=== PATIENT | male | born 1940 | race Caucasian/White ===

== ENCOUNTER → 2018-05-18 | Outpatient (CLI) | payer MEDICARE ==
[~2018-05-18] MED LIST: BENICAR40 MG PO; FLOMAX0.4 MG PO; KLOR-CON 1010 MEQ; METOPROLOL TART25 MG PO; NEXIUM40 MG PO; PROAIR HFA INH8.5 GM; SIMVASTATIN40 MG PO; SODIUM CHLORID250 M1 PO; eliquis PO
--- NOTE | 2018-05-19 08:29 | Diagnostic Imaging Report ---
#[id number] - USBRELIMRT ULTRASOUND OF THE RIGHT BREAST : 05/18/2018 Comparison is made to exam dated: 05/18/2018 mammogram - [facility]. Color flow and real-time ultrasound were performed on the right breast in the retroareolar region. No cystic or solid mass is seen. IMPRESSION: NEGATIVE There is no sonographic evidence of malignancy. Juan Luis Robison Jr., D.O. cw/:05/18/2018 14:28:11 Leather Crafter: Steffany DE LEON(R)(M), [facility] letter sent: Normal Exam Ultrasound BI-RADS: 1 Negative
--- NOTE | 2018-05-19 08:29 | Diagnostic Imaging Report ---
#[id number] - USBRELIMLT ULTRASOUND OF THE LEFT BREAST : 05/18/2018 Comparison is made to exam dated: 05/18/2018 mammogram - [facility]. Color flow and real-time ultrasound were performed on the left breast in the retroareolar region. No cystic or solid mass is noted. IMPRESSION: NEGATIVE There is no sonographic evidence of malignancy. Juan Luis Robison Jr., D.O. cw/:05/18/2018 14:26:21 Business Services Director: Sarthak Parker RDMS, [facility] letter sent: Normal Exam Ultrasound BI-RADS: 1 Negative
--- NOTE | 2018-05-19 08:29 | Diagnostic Imaging Report ---
#[id number] - MGDXBIL #MALE BILATERAL FIRST EVER DIGITAL DIAGNOSTIC MAMMOGRAM WITH CAD: 05/18/2018 No prior exams were available for comparison. Current study contains 4 films. Current study was also evaluated with a Computer Aided Detection (CAD) system. There is a benign calcification in the right breast. There is asymmetric gynecomastia with increased right retroareolar tissue compared to the fatty tissue on the left. No mass is identified. An ultrasound exam of both retroareolar regions will follow this exam. No significant masses, calcifications, or other findings are seen in either breast. IMPRESSION: BENIGN There is no mammographic evidence of malignancy. A 1 year screening mammogram is recommended. The patient will be notified by letter of the results. Juan Luis Robison Jr., D.O. cw/:05/18/2018 12:47:48 Cataract Lens Generator: Steffany GASPAR)(Jalyn), [facility] letter sent: Normal Exam Mammogram BI-RADS: 2 Benign
== END ==
LOC: MAMMO 09:44
PROVIDERS: ATTEND Family Medicine
DX: N62 Hypertrophy of breast (principal)
CPT/HCPCS: 77066

== ENCOUNTER 2020-06-26 06:04 | Inpatient (IN) | payer MEDICARE ==
[~2020-06-26] VITALS: Ht 165.1 cm; Wt 90.7 kg
[2020-06-26] MEDS ORDERED: ACETAMINOPHEN 325 MG TAB ONE (06:37)
[2020-06-26] MEDS ORDERED: ACETAMINOPHEN 325 MG TAB PO ONE (06:45)
[2020-06-26 06:56] LABS: BASOPHILS # (AUTO) 0.1 (0.0-0.1); BASOPHILS % 0.7 % (0.0-1.0); EOSINOPHILS # (AUTO) 0.4 (0.0-0.4); HEMATOCRIT 26.8 % (38.2-49.6); HEMOGLOBIN 8.3 g/dL (14.0-18.0); LYMPHOCYTES # (AUTO) 2.2 (1.0-3.2); LYMPHOCYTES % 12.2 % (18.0-39.1); MEAN CORPUSCULAR HEMOGLOBIN 27.3 pg (28-32); MEAN CORPUSCULAR VOLUME 88.2 fL (81-99); MONOCYTES # (AUTO) 1.3 (0.2-0.8); MONOCYTES % 7.1 % (4.4-11.3); NEUTROPHILS # (AUTO) 14.1 (2.1-6.9); NEUTROPHILS % 77.4 % (38.7-80.0); PLATELET COUNT 289 x10e3/uL (140-360); RED BLOOD COUNT 3.04 x10e6/uL (4.3-5.7); RED CELL DISTRIBUTION WIDTH 15.8 % (11.7-14.4)
[2020-06-26] MEDS ORDERED: METHYLPREDNISOLONE SOD SUCC 125 MG/2ML VIAL IV STA (06:59)
[2020-06-26] MEDS ORDERED: CEFTRIAXONE SOD 1 GM/50 ML BAG IV SCH (07:00)
[2020-06-26 07:07] LABS: ALBUMIN 3.7 g/dL (3.5-5.0); ALBUMIN/GLOBULIN RATIO 0.8 (0.8-2.0); ANION GAP 15.4 mmol/L (8-16); CALCIUM 8.8 mg/dL (8.4-10.2); CREATININE, SERUM 1.68 mg/dL (0.72-1.25); POTASSIUM 3.4 mmol/L (3.5-5.1)
[2020-06-26 07:11] LABS: INR 1.4; PARTIAL THROMBOPLASTIN TIME 41.4 seconds (23.8-35.5); PROTHROMBIN TIME 18.1 seconds (11.9-14.5)
[2020-06-26 07:16] LABS: CREATINE KINASE MB 1.8 ng/mL (0-5.0)
[2020-06-26] MEDS: CEFTRIAXONE SOD 1 GM in SODIUM CHLORIDE 0.9% 50ML 50 ML IV SCH (07:30)
[2020-06-26] MEDS ORDERED: IOPAMIDOL 370 MG/ML 200 ML INFUS..BTL INJ ONE (07:34)
[2020-06-26] MEDS ORDERED: SODIUM CHLORIDE 0.9% 50ML 50 ML ONE (07:34)
[2020-06-26] MEDS ORDERED: SODIUM CHLORIDE 0.9% 250ML 250 ML IV ONE (07:45)
[2020-06-26] MEDS: AZITHROMYCIN 500MG/NS 250 ML 250 ML IV SCH (07:47)
[2020-06-26] MEDS ORDERED: METOCLOPRAMIDE HCL 10 MG/2ML VIAL IV ONE (09:00)
[2020-06-26] MEDS ORDERED: DIPHENHYDRAMINE HCL INJ 50 MG/ML VIAL IV ONE (09:00)
[2020-06-26] MEDS ORDERED: ONDANSETRON HCL INJ 2MG/ML 2ML 2 MG/ML VIAL IV PRN (09:00)
[2020-06-26] MEDS ORDERED: FUROSEMIDE INJ 10 MG/ML 4 ML VIAL IV ONE (09:00)
[2020-06-26] MEDS: FAMOTIDINE 20 MG/2 ML VIAL IV SCH ×2 (09:00→19:55)
[2020-06-26] MEDS ORDERED: CARVEDILOL3.125 MG PO (09:11)
[2020-06-26] MEDS ORDERED: AMLODIPINE BESY10 MG PO (09:11)
[2020-06-26] MEDS ORDERED: GABAPENTIN300 MG PO (09:11)
[2020-06-26] MEDS ORDERED: ONDANSETRON ODT4 MG PO (09:11)
[2020-06-26] MEDS ORDERED: ASPIRIN CHEW81 MG PO (09:11)
[2020-06-26] MEDS ORDERED: XARELTO15 MG PO (09:11)
[2020-06-26] MEDS ORDERED: FUROSEMIDE40 MG PO (09:11)
[2020-06-26] MEDS ORDERED: OMEPRAZOLE40 MG PO (09:11)
[2020-06-26 12:05] VITALS: BP 149/74
[2020-06-26 12:10] VITALS: BP 149/74
[2020-06-26 12:15] LABS: CREATINE KINASE MB 5.9 ng/mL (0-5.0)
[2020-06-26 12:19] VITALS: BP 149/74
[2020-06-26] MEDS: FUROSEMIDE INJ 10 MG/ML 4 ML VIAL IV SCH (16:15)
[2020-06-26 16:22] VITALS: BP 138/62
[2020-06-26 20:35] LABS: CREATINE KINASE MB 6.8 ng/mL (0-5.0)
[2020-06-26] MEDS: SIMVASTATIN 40 MG TAB PO SCH (20:55)
[2020-06-26] MEDS: GABAPENTIN 300 MG CAP PO SCH (20:55)
[2020-06-26] MEDS: CARVEDILOL 3.125 MG TAB PO SCH (20:55)
[2020-06-26 20:59] VITALS: BP 137/66
[2020-06-26 21:00] VITALS: BP 137/66
[2020-06-27] VITALS (8 sets, daily range): BP systolic 111–139; BP diastolic 55–86
[2020-06-27 06:45] LABS: BASOPHILS % 0.1 % (0.0-1.0); HEMATOCRIT 25.7 % (38.2-49.6); LYMPHOCYTES # (AUTO) 1.2 (1.0-3.2); LYMPHOCYTES % 9.5 % (18.0-39.1); MEAN CORPUSCULAR HEMOGLOBIN 27.9 pg (28-32); MEAN CORPUSCULAR HGB CONC 31.1 g/dL (31-35); MEAN CORPUSCULAR VOLUME 89.5 fL (81-99); MONOCYTES # (AUTO) 0.7 (0.2-0.8); MONOCYTES % 5.4 % (4.4-11.3); NEUTROPHILS # (AUTO) 10.9 (2.1-6.9); NEUTROPHILS % 83.8 % (38.7-80.0); PLATELET COUNT 258 x10e3/uL (140-360); RED BLOOD COUNT 2.87 x10e6/uL (4.3-5.7); RED CELL DISTRIBUTION WIDTH 15.5 % (11.7-14.4)
[2020-06-27 07:04] LABS: ALBUMIN 3.6 g/dL (3.5-5.0); ALBUMIN/GLOBULIN RATIO 0.8 (0.8-2.0); ANION GAP 15.7 mmol/L (8-16); CALCIUM 8.7 mg/dL (8.4-10.2); CREATININE, SERUM 1.52 mg/dL (0.72-1.25); POTASSIUM 3.7 mmol/L (3.5-5.1)
[2020-06-27 07:19] LABS: CREATINE KINASE MB 4.8 ng/mL (0-5.0)
[2020-06-27] MEDS: CEFTRIAXONE SOD 1 GM in SODIUM CHLORIDE 0.9% 50ML 50 ML IV SCH (07:30)
[2020-06-27] MEDS ORDERED: CEFTRIAXONE SOD 1 GM VIAL ONE (08:29)
[2020-06-27] MEDS ORDERED: SODIUM CHLORIDE 0.9% 50ML 50 ML ONE (08:29)
[2020-06-27] MEDS ORDERED: RIVAROXABAN 15 MG TABLET PO SCH (09:00)
[2020-06-27] MEDS: AZITHROMYCIN 500MG/NS 250 ML 250 ML IV SCH (09:00)
[2020-06-27] MEDS: FUROSEMIDE INJ 10 MG/ML 4 ML VIAL IV SCH (09:02)
[2020-06-27] MEDS: FAMOTIDINE 20 MG/2 ML VIAL IV SCH (09:03)
[2020-06-27] MEDS: CARVEDILOL 3.125 MG TAB PO SCH ×2 (09:06→21:30)
[2020-06-27] MEDS: ASPIRIN 81 MG CHEW TAB PO SCH (09:06)
[2020-06-27] MEDS: PANTOPRAZOLE SOD 40 MG TABEC PO SCH (09:06)
[2020-06-27] MEDS: GABAPENTIN 300 MG CAP PO SCH ×3 (09:06→21:30)
[2020-06-27] MEDS ORDERED: SODIUM CHLORIDE 0.9% 250ML 250 ML ONE (09:29)
[2020-06-27 10:31] LABS: CLARITY,URINE CLEAR (CLEAR); COLOR,URINE YELLOW (YELLOW); KETONES,URINE NEGATIVE (NEGATIVE); LEUKOCYTE ESTERASE ,URINE NEGATIVE (NEGATIVE); NITRITE,URINE NEGATIVE (NEGATIVE); PROTEIN,URINE DIPSTICK NEGATIVE (NEGATIVE); URINE UROBILINOGEN 0.2 mg/dL (0.2 - 1)
[2020-06-27 10:51] LABS: BACTERIA,URINE MODERATE /HPF; WBC,URINE (MAN) 0-5 /HPF (0-5)
[2020-06-27] MEDS ORDERED: ONDANSETRON HCL 4 MG ORAL DISINTEGRATING TAB PO PRN (12:00)
[2020-06-27] MEDS ORDERED: SODIUM CHLORIDE 0.9% 1000ML 1,000 ML IV SCH ×2 (17:45→19:00)
[2020-06-27] MEDS: SIMVASTATIN 40 MG TAB PO SCH (21:30)
[2020-06-27] MEDS: FAMOTIDINE 20 MG TAB PO SCH (21:30)
[2020-06-28] VITALS (13 sets, daily range): BP systolic 114–150; BP diastolic 52–94
[2020-06-28] MEDS ORDERED: CEFTRIAXONE SOD 1 GM VIAL ONE (08:03)
[2020-06-28] MEDS ORDERED: SODIUM CHLORIDE 0.9% 50ML 50 ML ONE (08:03)
[2020-06-28 08:08] LABS: BASOPHILS # (AUTO) 0.1 (0.0-0.1); BASOPHILS % 0.4 % (0.0-1.0); EOSINOPHILS # (AUTO) 0.1 (0.0-0.4); EOSINOPHILS % 0.7 % (0.0-6.0); HEMATOCRIT 25.3 % (38.2-49.6); HEMOGLOBIN 7.7 g/dL (14.0-18.0); LYMPHOCYTES # (AUTO) 2.1 (1.0-3.2); LYMPHOCYTES % 13.9 % (18.0-39.1); MEAN CORPUSCULAR HGB CONC 30.4 g/dL (31-35); MEAN CORPUSCULAR VOLUME 88.8 fL (81-99); MONOCYTES # (AUTO) 1.3 (0.2-0.8); MONOCYTES % 8.2 % (4.4-11.3); NEUTROPHILS # (AUTO) 11.6 (2.1-6.9); NEUTROPHILS % 76.3 % (38.7-80.0); PLATELET COUNT 262 x10e3/uL (140-360); RED BLOOD COUNT 2.85 x10e6/uL (4.3-5.7); RED CELL DISTRIBUTION WIDTH 15.9 % (11.7-14.4)
[2020-06-28] MEDS: GABAPENTIN 300 MG CAP PO SCH ×3 (08:15→22:15)
[2020-06-28] MEDS: FUROSEMIDE INJ 10 MG/ML 4 ML VIAL IV SCH ×2 (08:15→17:45)
[2020-06-28] MEDS: PANTOPRAZOLE SOD 40 MG TABEC PO SCH (08:15)
[2020-06-28] MEDS: FAMOTIDINE 20 MG TAB PO SCH ×2 (08:15→22:15)
[2020-06-28] MEDS: AZITHROMYCIN 250 MG TAB PO SCH (08:15)
[2020-06-28] MEDS: CEFTRIAXONE SOD 1 GM in SODIUM CHLORIDE 0.9% 50ML 50 ML IV SCH (08:15)
[2020-06-28] MEDS: ASPIRIN 81 MG CHEW TAB PO SCH (08:15)
[2020-06-28] MEDS: CARVEDILOL 3.125 MG TAB PO SCH ×2 (08:15→22:16)
[2020-06-28 08:27] LABS: ANION GAP 13.6 mmol/L (8-16); CALCIUM 8.8 mg/dL (8.4-10.2); CREATININE, SERUM 1.31 mg/dL (0.72-1.25); POTASSIUM 3.6 mmol/L (3.5-5.1)
[2020-06-28] MEDS ORDERED: SODIUM CHLORIDE 0.9% 250ML 250 ML IV ONE (10:30)
[2020-06-28] MEDS ORDERED: LIDOCAINE HCL 2% LOCAL 20 ML VIAL ONE (15:19)
[2020-06-28] MEDS ORDERED: FENTANYL CITRATE/PF 100MCG/2 ML INJ ONE (15:19)
[2020-06-28] MEDS ORDERED: MIDAZOLAM HCL 2 MG/2 ML VIAL ONE (15:19)
[2020-06-28] MEDS ORDERED: SODIUM CHLORIDE 0.9% 1000ML 1,000 ML ONE (15:20)
[2020-06-28] MEDS ORDERED: HEPARIN SOD/SOD CHLORIDE 2,000 ML ONE (15:20)
[2020-06-28] MEDS ORDERED: IOPAMIDOL 370 MG/ML 200 ML INFUS..BTL INJ ONE (15:20)
[2020-06-28] MEDS ORDERED: FUROSEMIDE INJ 10 MG/ML 4 ML VIAL ONE (17:22)
[2020-06-28] MEDS: SIMVASTATIN 40 MG TAB PO SCH (22:15)
[2020-06-29] VITALS (8 sets, daily range): BP systolic 111–154; BP diastolic 61–85
[2020-06-29 08:04] LABS: BASOPHILS # (AUTO) 0.1 (0.0-0.1); BASOPHILS % 0.6 % (0.0-1.0); EOSINOPHILS # (AUTO) 0.3 (0.0-0.4); EOSINOPHILS % 2.9 % (0.0-6.0); HEMATOCRIT 27.1 % (38.2-49.6); HEMOGLOBIN 8.4 g/dL (14.0-18.0); LYMPHOCYTES # (AUTO) 1.6 (1.0-3.2); MEAN CORPUSCULAR HEMOGLOBIN 27.2 pg (28-32); MEAN CORPUSCULAR VOLUME 87.7 fL (81-99); MONOCYTES % 9.2 % (4.4-11.3); NEUTROPHILS # (AUTO) 7.7 (2.1-6.9); NEUTROPHILS % 71.7 % (38.7-80.0); PLATELET COUNT 258 x10e3/uL (140-360); RED BLOOD COUNT 3.09 x10e6/uL (4.3-5.7); RED CELL DISTRIBUTION WIDTH 15.6 % (11.7-14.4)
[2020-06-29] MEDS: LORAZEPAM 0.5 MG TAB PO PRN ×3 (08:05→21:41)
[2020-06-29 08:18] LABS: ANION GAP 14.3 mmol/L (8-16); BLOOD UREA NITROGEN 19 mg/dL (7-26); BUN/CREATININE RATIO 19 (6-25); CALCIUM 8.9 mg/dL (8.4-10.2); CARBON DIOXIDE 32 mmol/L (22-29); CHLORIDE 98 mmol/L (98-107); CREATININE, SERUM 1.02 mg/dL (0.72-1.25); EST GLOMERULAR FILTRATION RATE > 60 ML/MIN (60-); GLUCOSE 106 mg/dL (74-118); POTASSIUM 3.3 mmol/L (3.5-5.1); SODIUM 141 mmol/L (136-145)
[2020-06-29] MEDS ORDERED: SODIUM CHLORIDE 0.9% 50ML 100 ML ONE (08:36)
[2020-06-29] MEDS ORDERED: CEFTRIAXONE SOD 1 GM VIAL ONE (08:36)
[2020-06-29] MEDS: CEFTRIAXONE SOD 1 GM in SODIUM CHLORIDE 0.9% 50ML 50 ML IV SCH (09:23)
[2020-06-29] MEDS: FUROSEMIDE INJ 10 MG/ML 4 ML VIAL IV SCH (09:23)
[2020-06-29] MEDS: ASPIRIN 81 MG CHEW TAB PO SCH (09:23)
[2020-06-29] MEDS: CARVEDILOL 3.125 MG TAB PO SCH ×2 (09:24→21:32)
[2020-06-29] MEDS: FAMOTIDINE 20 MG TAB PO SCH ×2 (09:24→21:32)
[2020-06-29] MEDS: GABAPENTIN 300 MG CAP PO SCH ×3 (09:24→21:32)
[2020-06-29] MEDS: PANTOPRAZOLE SOD 40 MG TABEC PO SCH (09:24)
[2020-06-29] MEDS: AZITHROMYCIN 250 MG TAB PO SCH (09:24)
[2020-06-29] MEDS: SIMVASTATIN 40 MG TAB PO SCH (21:32)
[2020-06-30] VITALS: BP 148/67
[2020-06-30 04:00] VITALS: BP 140/60
[2020-06-30 06:35] LABS: BASOPHILS # (AUTO) 0.1 (0.0-0.1); BASOPHILS % 0.6 % (0.0-1.0); EOSINOPHILS # (AUTO) 0.5 (0.0-0.4); EOSINOPHILS % 5.1 % (0.0-6.0); HEMATOCRIT 26.6 % (38.2-49.6); HEMOGLOBIN 8.2 g/dL (14.0-18.0); LYMPHOCYTES # (AUTO) 1.7 (1.0-3.2); LYMPHOCYTES % 17.2 % (18.0-39.1); MEAN CORPUSCULAR HEMOGLOBIN 26.7 pg (28-32); MEAN CORPUSCULAR HGB CONC 30.8 g/dL (31-35); MEAN CORPUSCULAR VOLUME 86.6 fL (81-99); MONOCYTES # (AUTO) 1.1 (0.2-0.8); NEUTROPHILS # (AUTO) 6.6 (2.1-6.9); NEUTROPHILS % 65.6 % (38.7-80.0); PLATELET COUNT 228 x10e3/uL (140-360); RED BLOOD COUNT 3.07 x10e6/uL (4.3-5.7); RED CELL DISTRIBUTION WIDTH 15.4 % (11.7-14.4)
[2020-06-30 06:51] LABS: BLOOD UREA NITROGEN 15 mg/dL (7-26); BUN/CREATININE RATIO 15 (6-25); CALCIUM 8.3 mg/dL (8.4-10.2); CARBON DIOXIDE 34 mmol/L (22-29); CHLORIDE 96 mmol/L (98-107); EST GLOMERULAR FILTRATION RATE > 60 ML/MIN (60-); GLUCOSE 104 mg/dL (74-118); SODIUM 139 mmol/L (136-145)
[2020-06-30] MEDS ORDERED: CEFTRIAXONE SOD 1 GM VIAL ONE (07:52)
[2020-06-30] MEDS ORDERED: SODIUM CHLORIDE 0.9% 50ML 50 ML ONE (07:53)
[2020-06-30] MEDS: CEFTRIAXONE SOD 1 GM in SODIUM CHLORIDE 0.9% 50ML 50 ML IV SCH (08:32)
[2020-06-30] MEDS: ASPIRIN 81 MG CHEW TAB PO SCH (08:32)
[2020-06-30] MEDS: FUROSEMIDE INJ 10 MG/ML 4 ML VIAL IV SCH (08:32)
[2020-06-30] MEDS: LORAZEPAM 0.5 MG TAB PO PRN (08:33)
[2020-06-30] MEDS: PANTOPRAZOLE SOD 40 MG TABEC PO SCH (08:33)
[2020-06-30] MEDS: CARVEDILOL 3.125 MG TAB PO SCH (08:33)
[2020-06-30] MEDS: GABAPENTIN 300 MG CAP PO SCH (08:33)
[2020-06-30] MEDS: FAMOTIDINE 20 MG TAB PO SCH (08:33)
[2020-06-30] MEDS: AZITHROMYCIN 250 MG TAB PO SCH (08:33)
[2020-06-30 08:34] VITALS: BP 133/55
[2020-06-30 09:13] VITALS: BP 133/55
[2020-06-30] MEDS ORDERED: AMLODIPINE BESY10 MG PO (09:21)
[2020-06-30] MEDS ORDERED: CIPRO250 MG PO (09:21)
== END 2020-06-30 10:02 | disposition home or self-care (01) | DRG 871 ==
LOC: ER 07:27 → ERHOLD 09:05 → MED/SURG2 11:15
PROVIDERS: ADMIT Family Medicine; ATTEND Family Medicine
PROC: 4A023N7 Measurement of Cardiac Sampling and Pressure, Left Heart, Percutaneous Approach (ICD-10-PCS; principal; 2020-06-28)
PROC: B2111ZZ Fluoroscopy of Multiple Coronary Arteries using Low Osmolar Contrast (ICD-10-PCS; 2020-06-28)
PROC: B2151ZZ Fluoroscopy of Left Heart using Low Osmolar Contrast (ICD-10-PCS; 2020-06-28)
DX: A41.9 Sepsis, unspecified organism (principal); J18.9 Pneumonia, unspecified organism; I50.33 Acute on chronic diastolic (congestive) heart failure; I21.A1 Myocardial infarction type 2; N17.9 Acute kidney failure, unspecified; I13.0 Hypertensive heart and chronic kidney disease with heart failure and stage 1 through stage 4 chronic kidney disease, or unspecified chronic kidney disease; C61 Malignant neoplasm of prostate; I48.91 Unspecified atrial fibrillation; J61 Pneumoconiosis due to asbestos and other mineral fibers; I25.10 Atherosclerotic heart disease of native coronary artery without angina pectoris; I25.82 Chronic total occlusion of coronary artery; R55 Syncope and collapse; E87.5 Hyperkalemia; N18.9 Chronic kidney disease, unspecified; Z96.641 Presence of right artificial hip joint; Z88.5 Allergy status to narcotic agent; Z88.8 Allergy status to other drugs, medicaments and biological substances; Z85.46 Personal history of malignant neoplasm of prostate; E66.9 Obesity, unspecified; Z20.822 Contact with and (suspected) exposure to COVID-19; Z95.5 Presence of coronary angioplasty implant and graft; E78.5 Hyperlipidemia, unspecified; Z95.820 Peripheral vascular angioplasty status with implants and grafts; Z68.33 Body mass index [BMI] 33.0-33.9, adult
CPT/HCPCS: 36415; 71045; 71260; 76937; 80048; 80053; 80061; 81001; 82270; 82550; 82553; 82728; 83540; 83605; 83735; 83880; 84466; 84484; 85025; 85379; 85610; 85730; 86850; 86900; 86920; 87040; 87086; 93005; 93306; 93458; 93970; 99152; 99284; C1769; J0456; J0696; J1940; J2001; J2250; J2930; J3010; J7030; J7050; Q9967; U0002

== ENCOUNTER 2020-07-23 08:28 | Inpatient (IN) | payer MEDICARE ==
[~2020-07-23] VITALS: Ht 165.1 cm; Wt 90.7 kg
[~2020-07-23 08:28] MED LIST changes: +AMLODIPINE BESY10 MG PO; +ASPIRIN CHEW81 MG PO; +CARVEDILOL3.125 MG PO; +CIPRO250 MG PO; +FUROSEMIDE40 MG PO; +GABAPENTIN300 MG PO; +OMEPRAZOLE40 MG PO; +ONDANSETRON ODT4 MG PO; +XARELTO15 MG PO
[2020-07-23 09:00] LABS: BASOPHILS # (AUTO) 0.1 (0.0-0.1); BASOPHILS % 0.6 % (0.0-1.0); EOSINOPHILS # (AUTO) 0.4 (0.0-0.4); EOSINOPHILS % 3.5 % (0.0-6.0); HEMATOCRIT 25.1 % (38.2-49.6); HEMOGLOBIN 7.5 g/dL (14.0-18.0); LYMPHOCYTES # (AUTO) 1.7 (1.0-3.2); LYMPHOCYTES % 16.5 % (18.0-39.1); MEAN CORPUSCULAR HEMOGLOBIN 25.9 pg (28-32); MEAN CORPUSCULAR HGB CONC 29.9 g/dL (31-35); MEAN CORPUSCULAR VOLUME 86.6 fL (81-99); MONOCYTES % 9.2 % (4.4-11.3); NEUTROPHILS # (AUTO) 7.4 (2.1-6.9); NEUTROPHILS % 69.9 % (38.7-80.0); PLATELET COUNT 238 x10e3/uL (140-360); RED CELL DISTRIBUTION WIDTH 15.4 % (11.7-14.4)
[2020-07-23 09:19] LABS: ALBUMIN 3.5 g/dL (3.5-5.0); ALBUMIN/GLOBULIN RATIO 0.9 (0.8-2.0); ANION GAP 12.1 mmol/L (8-16); CALCIUM 8.5 mg/dL (8.4-10.2); CREATININE, SERUM 1.26 mg/dL (0.72-1.25); POTASSIUM 3.1 mmol/L (3.5-5.1)
[2020-07-23 09:59] LABS: FREE THYROXINE INDEX 2.2647 (1.4-3.8); THYROID STIMULATING HORMONE 1.156 uIU/mL (0.350-4.940)
[2020-07-23] MEDS ORDERED: CEFEPIME HCL 1GM 1 GM in SODIUM CHLORIDE 0.9% 50ML 50 ML IV STA (10:04)
[2020-07-23 11:04] LABS: BACTERIA,URINE FEW /HPF; CLARITY,URINE CLEAR (CLEAR); COLOR,URINE YELLOW (YELLOW); EPITHELIAL CELLS,URINE FEW /LPF; KETONES,URINE NEGATIVE (NEGATIVE); LEUKOCYTE ESTERASE ,URINE NEGATIVE (NEGATIVE); NITRITE,URINE NEGATIVE (NEGATIVE); PROTEIN,URINE DIPSTICK TRACE (NEGATIVE); RBC,URINE 0-5 /HPF (0-5); URINE UROBILINOGEN 0.2 mg/dL (0.2 - 1); WBC,URINE (MAN) 0-5 /HPF (0-5)
[2020-07-23 11:06] LABS: MUCUS,URINE FEW (RARE); TRANSITIONAL EPI CELLS,URINE FEW
[2020-07-23 11:10] LABS: CREATINE KINASE MB 0.5 ng/mL (0-5.0)
[2020-07-23 16:15] VITALS: BP 120/63
[2020-07-23] MEDS ORDERED: POTASSIUM CHLORIDE 20 MEQ TAB CR PO NR (16:15)
[2020-07-23] MEDS ORDERED: ONDANSETRON HCL 4 MG ORAL DISINTEGRATING TAB PO PRN (16:15)
[2020-07-23] MEDS ORDERED: FUROSEMIDE 40 MG TAB PO SCH (16:15)
[2020-07-23 16:21] VITALS: BP 120/63
[2020-07-23] MEDS: CARVEDILOL 3.125 MG TAB PO SCH (16:51)
[2020-07-23] MEDS ORDERED: ONDANSETRON HCL 4 MG ORAL DISINTEGRATING TAB PO SCH (18:00)
[2020-07-23 18:29] LABS: % IRON SATURATION 5 % (15-50); IRON 22 ug/dL (65-175); TOTAL IRON BINDING CAPACITY 482 ug/dL (261-478); TRANSFERRIN 344 mg/dL (174-364)
[2020-07-23 20:19] LABS: CREATINE KINASE MB 0.8 ng/mL (0-5.0)
[2020-07-23 20:55] VITALS: BP 136/59
[2020-07-23] MEDS: GABAPENTIN 300 MG CAP PO SCH (21:00)
[2020-07-23] MEDS ORDERED: SIMVASTATIN 40 MG TAB PO SCH (21:00)
[2020-07-23 22:26] VITALS: BP 136/59
[2020-07-24 00:57] VITALS: BP 145/58
[2020-07-24 05:28] VITALS: BP 140/76
[2020-07-24 06:16] LABS: BASOPHILS # (AUTO) 0.1 (0.0-0.1); BASOPHILS % 0.7 % (0.0-1.0); EOSINOPHILS # (AUTO) 0.6 (0.0-0.4); EOSINOPHILS % 4.6 % (0.0-6.0); HEMATOCRIT 26.9 % (38.2-49.6); HEMOGLOBIN 8.1 g/dL (14.0-18.0); LYMPHOCYTES # (AUTO) 1.8 (1.0-3.2); MEAN CORPUSCULAR HEMOGLOBIN 25.4 pg (28-32); MEAN CORPUSCULAR HGB CONC 30.1 g/dL (31-35); MEAN CORPUSCULAR VOLUME 84.3 fL (81-99); MONOCYTES # (AUTO) 1.2 (0.2-0.8); MONOCYTES % 9.9 % (4.4-11.3); NEUTROPHILS # (AUTO) 8.3 (2.1-6.9); NEUTROPHILS % 69.5 % (38.7-80.0); PLATELET COUNT 253 x10e3/uL (140-360); RED BLOOD COUNT 3.19 x10e6/uL (4.3-5.7); RED CELL DISTRIBUTION WIDTH 15.3 % (11.7-14.4)
[2020-07-24 06:40] LABS: ALANINE AMINOTRANSFERASE 8 IU/L (0-55); ALBUMIN 3.5 g/dL (3.5-5.0); ALBUMIN/GLOBULIN RATIO 0.9 (0.8-2.0); ALKALINE PHOSPHATASE 61 IU/L (40-150); ANION GAP 15.1 mmol/L (8-16); BLOOD UREA NITROGEN 12 mg/dL (7-26); BUN/CREATININE RATIO 12 (6-25); CARBON DIOXIDE 35 mmol/L (22-29); CHLORIDE 94 mmol/L (98-107); CREATININE, SERUM 1.03 mg/dL (0.72-1.25); EST GLOMERULAR FILTRATION RATE > 60 ML/MIN (60-); GLUCOSE 102 mg/dL (74-118); POTASSIUM 3.1 mmol/L (3.5-5.1); SODIUM 141 mmol/L (136-145)
[2020-07-24] MEDS ORDERED: CEFTRIAXONE SOD 1 GM/50 ML BAG IV SCH (07:00)
[2020-07-24 07:28] LABS: CREATINE KINASE MB 0.8 ng/mL (0-5.0)
[2020-07-24 07:30] VITALS: BP 150/53
[2020-07-24] MEDS ORDERED: CEFTRIAXONE SOD 1 GM in SODIUM CHLORIDE 0.9% 50ML 50 ML IV SCH (08:00)
[2020-07-24] MEDS ORDERED: AZITHROMYCIN 500MG/NS 250 ML 250 ML IV SCH (08:45)
[2020-07-24] MEDS ORDERED: SODIUM CHLORIDE 0.9% 250ML 250 ML ONE (08:56)
[2020-07-24] MEDS ORDERED: AMLODIPINE BESYLATE 10 MG TAB PO SCH (09:00)
[2020-07-24] MEDS ORDERED: ASPIRIN 81 MG CHEW TAB PO SCH (09:00)
[2020-07-24] MEDS ORDERED: PANTOPRAZOLE SOD 40 MG TABEC PO SCH (09:00)
[2020-07-24] MEDS ORDERED: IRON SUCROSE 100 MG in SODIUM CHLORIDE 0.9% 100 ML 100 ML IV SCH (09:00)
[2020-07-24] MEDS ORDERED: FUROSEMIDE INJ 10 MG/ML 4 ML VIAL IV SCH (09:00)
[2020-07-24] MEDS ORDERED: RIVAROXABAN 15 MG TABLET PO SCH (09:00)
[2020-07-24] MEDS: GABAPENTIN 300 MG CAP PO SCH ×2 (09:20→15:00)
[2020-07-24] MEDS: CARVEDILOL 3.125 MG TAB PO SCH ×2 (09:20→17:20)
[2020-07-24 11:23] VITALS: BP 115/52
[2020-07-24] MEDS ORDERED: POTASSIUM CHLORIDE 10MEQ EA PO ONE (12:00)
[2020-07-24 15:14] VITALS: BP 132/51
== END 2020-07-24 18:44 | disposition home or self-care (01) | DRG 293 ==
LOC: ER 09:04 → ERHOLD 10:09 → MED/SURG3 14:57 → OBSVTOIN 07-24 14:22
PROVIDERS: ADMIT Family Medicine; ATTEND Family Medicine
DX: I50.43 Acute on chronic combined systolic (congestive) and diastolic (congestive) heart failure (principal); R53.1 Weakness; J61 Pneumoconiosis due to asbestos and other mineral fibers; Z86.73 Personal history of transient ischemic attack (TIA), and cerebral infarction without residual deficits; I48.0 Paroxysmal atrial fibrillation; G62.9 Polyneuropathy, unspecified; E87.6 Hypokalemia; T43.215A Adverse effect of selective serotonin and norepinephrine reuptake inhibitors, initial encounter; Z88.5 Allergy status to narcotic agent; Z88.8 Allergy status to other drugs, medicaments and biological substances; Z20.822 Contact with and (suspected) exposure to COVID-19
CPT/HCPCS: 36415; 71045; 71250; 80053; 81001; 82550; 82553; 83540; 83605; 83880; 84436; 84443; 84466; 84479; 84484; 85025; 87040; 93005; 99284; G0378; J0456; J0692; J0696; J1756; J1940; J7050; U0002

== ENCOUNTER → 2022-05-19 | Outpatient (RCR) | payer MEDICARE | LOC: RESP 10:14 | DX: J98.4 Other disorders of lung (principal) | CPT/HCPCS: 94799 ==

== ENCOUNTER 2022-05-27 11:14 | Outpatient (RCR) | payer MEDICARE | END 2022-06-16 | LOC: RESP 11:14 | PROVIDERS: ATTEND Internal Medicine Critical Care Medicine | DX: R06.02 Shortness of breath (principal) | CPT/HCPCS: 94626 ×3; G0238 ×3 ==

== ENCOUNTER 2023-05-16 10:42 | Inpatient (IN) | payer MEDICARE ==
[2023-05-16] VITALS (15 sets, daily range): BP systolic 131–158; BP diastolic 51–83; PULSE 48–62; RESP 13–22; TEMP 97.8; O2SAT 94–98
[~2023-05-16] VITALS: Ht 190.5 cm; Wt 82.1 kg
[2023-05-16 11:44] LABS: BASOPHILS # (AUTO) 0.1 (0.0-0.1); BASOPHILS % 0.3 % (0.0-1.0); EOSINOPHILS # (AUTO) 0.2 (0.0-0.4); EOSINOPHILS % 0.8 % (0.0-6.0); HEMATOCRIT 33.9 % (38.2-49.6); HEMOGLOBIN 11.6 g/dL (14.0-18.0); LYMPHOCYTES # (AUTO) 1.3 (1.0-3.2); LYMPHOCYTES % 4.7 % (18.0-39.1); MEAN CORPUSCULAR HEMOGLOBIN 32.5 pg (28-32); MEAN CORPUSCULAR HGB CONC 34.2 g/dL (31-35); MONOCYTES # (AUTO) 1.2 (0.2-0.8); MONOCYTES % 4.2 % (4.4-11.3); NEUTROPHILS # (AUTO) 24.8 (2.1-6.9); NEUTROPHILS % 89.1 % (38.7-80.0); PLATELET COUNT 223 x10e3/uL (140-360); RED BLOOD COUNT 3.57 x10e6/uL (4.3-5.7); RED CELL DISTRIBUTION WIDTH 14.6 % (11.7-14.4); WHITE BLOOD COUNT 27.82 x10e3/uL (4.8-10.8)
[2023-05-16 11:49] LABS: INR 0.88; PROTHROMBIN TIME 12.1 seconds (11.9-14.5)
[2023-05-16 11:50] LABS: PARTIAL THROMBOPLASTIN TIME 30.9 seconds (23.8-35.5)
[2023-05-16 11:56] LABS: ALBUMIN/GLOBULIN RATIO 0.8 (0.8-2.0); ANION GAP 15.1 mmol/L (8-16); BILIRUBIN,TOTAL 6.7 mg/dL (0.2-1.2); CALCIUM 8.9 mg/dL (8.4-10.2); CREATININE, SERUM 1.29 mg/dL (0.72-1.25); TOTAL PROTEIN 6.7 g/dL (6.5-8.1)
[2023-05-16 12:05] LABS: POTASSIUM 3.1 mmol/L (3.5-5.1)
[2023-05-16] MEDS ORDERED: IOPAMIDOL 370 MG/ML 100 ML INFUS..BTL INJ ONE (12:23)
[2023-05-16] MEDS: CEFEPIME 2 GM in SODIUM CHLORIDE 0.9% 100 ML IV ONE (12:35)
[2023-05-16 12:38] LABS: CLARITY,URINE CLEAR (CLEAR); COLOR,URINE YELLOW (YELLOW)
[2023-05-16 12:39] LABS: BILIRUBIN,URINE MODERATE (NEGATIVE); GLUCOSE, URINE NEGATIVE (NEGATIVE); KETONES,URINE NEGATIVE (NEGATIVE); LEUKOCYTE ESTERASE ,URINE NEGATIVE (NEGATIVE); NITRITE,URINE NEGATIVE (NEGATIVE); PH,URINE 6 (5 - 7); PROTEIN,URINE DIPSTICK NEGATIVE (NEGATIVE); URINE UROBILINOGEN 1 mg/dL (0.2 - 1)
[2023-05-16] MEDS ORDERED: Vancomycin IV 500 MG ONE (12:42)
[2023-05-16] MEDS: Vancomycin IV 1.25 GM in SODIUM CHLORIDE 0.9% 250ML 250 ML IV SCH (12:46)
[2023-05-16 12:51] LABS: URIC ACID CRYSTALS,URINE MODERATE (FEW)
[2023-05-16 12:53] LABS: BACTERIA,URINE FEW /HPF; EPITHELIAL CELLS,URINE FEW /LPF; RBC,URINE 0-5 /HPF (0-5); WBC,URINE (MAN) 0-5 /HPF (0-5)
[2023-05-16 13:03] LABS: BAND NEUTROPHILS % (MANUAL) 1 %; BASOPHILS % (MANUAL) 1 % (0-1.5); LYMPHOCYTES % (MANUAL) 6 % (19-48); MONOCYTES % (MANUAL) 5 % (3.4-9.0); NEUTROPHILS % (MANUAL) 87 % (40-74); PLATELET ESTIMATE ADEQUATE
[2023-05-16 13:04] LABS: PLATELET MORPHOLOGY COMMENT RARE EDTA CLUMPING
[2023-05-16] MEDS ORDERED: ONDANSETRON HCL INJ 2MG/ML 2ML 2 MG/ML VIAL IV PRN ×2 (15:30→17:00)
[2023-05-16 16:48] LABS: BILIRUBIN,DIRECT 5.1 mg/dL (0.0-0.5); BILIRUBIN,INDIRECT 1.7 mg/dL (0.3-1.2); BILIRUBIN,TOTAL 6.8 mg/dL (0.2-1.2)
[2023-05-16] MEDS ORDERED: ACETAMINOPHEN 325 MG TAB PO PRN (17:00)
[2023-05-16] MEDS: CARVEDILOL 3.125 MG TAB PO SCH (17:00)
[2023-05-16] MEDS ORDERED: ALBUTEROL/IPRATROPIUM 3 ML NEB NEB PRN (17:15)
[2023-05-16] MEDS: SODIUM CHLORIDE 0.9% 1000ML 1,000 ML IV SCH (17:32)
[2023-05-16] MEDS: ALBUTEROL/IPRATROPIUM 3 ML NEB NEB SCH (19:00)
[2023-05-16] MEDS ORDERED: GABAPENTIN 100 MG CAP PO SCH (21:00)
[2023-05-16] MEDS: GABAPENTIN 300 MG CAP PO SCH (21:03)
[2023-05-17] VITALS (16 sets, daily range): BP systolic 139–154; BP diastolic 54–62; PULSE 58–74; RESP 16–24; TEMP 98.2–98.4; O2SAT 91–96
[2023-05-17] MEDS ORDERED: MAGNESIUM/ALUMINUM/SIMETHICONE 30 ML UDC PO PRN (02:45)
[2023-05-17] MEDS ORDERED: GUAIFENESIN/DEXTROMETHORPHAN LIQD 5 ML UDC PO PRN (02:45)
[2023-05-17] MEDS ORDERED: MELATONIN 3 MG TAB PO PRN (02:45)
[2023-05-17] MEDS ORDERED: HYDRALAZINE HCL 20 MG/ML VIAL IV PRN (02:45)
[2023-05-17] MEDS ORDERED: DOCUSATE SODIUM 100 MG CAP PO PRN (02:45)
[2023-05-17 06:53] LABS: BASOPHILS # (AUTO) 0.1 (0.0-0.1); BASOPHILS % 0.4 % (0.0-1.0); EOSINOPHILS # (AUTO) 0.6 (0.0-0.4); EOSINOPHILS % 3.1 % (0.0-6.0); HEMATOCRIT 31.9 % (38.2-49.6); HEMOGLOBIN 10.8 g/dL (14.0-18.0); LYMPHOCYTES # (AUTO) 1.9 (1.0-3.2); LYMPHOCYTES % 10.2 % (18.0-39.1); MEAN CORPUSCULAR HEMOGLOBIN 32.2 pg (28-32); MEAN CORPUSCULAR HGB CONC 33.9 g/dL (31-35); MEAN CORPUSCULAR VOLUME 95.2 fL (81-99); MONOCYTES % 5.6 % (4.4-11.3); NEUTROPHILS # (AUTO) 14.7 (2.1-6.9); NEUTROPHILS % 80.3 % (38.7-80.0); PLATELET COUNT 213 x10e3/uL (140-360); RED BLOOD COUNT 3.35 x10e6/uL (4.3-5.7); RED CELL DISTRIBUTION WIDTH 14.7 % (11.7-14.4); WHITE BLOOD COUNT 18.31 x10e3/uL (4.8-10.8)
[2023-05-17 07:10] LABS: ALBUMIN 2.7 g/dL (3.5-5.0); ALBUMIN/GLOBULIN RATIO 0.8 (0.8-2.0); ANION GAP 13.1 mmol/L (8-16); BILIRUBIN,TOTAL 8.2 mg/dL (0.2-1.2); CALCIUM 8.8 mg/dL (8.4-10.2); CREATININE, SERUM 0.93 mg/dL (0.72-1.25); TOTAL PROTEIN 6.2 g/dL (6.5-8.1)
[2023-05-17 07:17] LABS: POTASSIUM 3.1 mmol/L (3.5-5.1)
[2023-05-17] MEDS: POTASSIUM CHLORIDE 10MEQ EA PO ONE (10:46)
[2023-05-17] MEDS: ASPIRIN 81 MG CHEW TAB PO SCH (12:56)
[2023-05-17] MEDS: KETOROLAC TROMETHAMINE 30 MG/ML VIAL IV ONE (17:37)
[2023-05-17] MEDS: KETOROLAC TROMETHAMINE 30 MG/ML VIAL ONE (17:39)
[2023-05-17] MEDS: GABAPENTIN 300 MG CAP PO SCH (19:00)
[2023-05-18] VITALS (15 sets, daily range): BP systolic 137–170; BP diastolic 55–72; PULSE 55–104; RESP 15–20; TEMP 97.7–98.4; O2SAT 89–100
[2023-05-18 06:47] LABS: BASOPHILS # (AUTO) 0.1 (0.0-0.1); BASOPHILS % 0.6 % (0.0-1.0); EOSINOPHILS # (AUTO) 0.7 (0.0-0.4); EOSINOPHILS % 5.3 % (0.0-6.0); HEMATOCRIT 30.9 % (38.2-49.6); HEMOGLOBIN 10.2 g/dL (14.0-18.0); LYMPHOCYTES # (AUTO) 1.6 (1.0-3.2); LYMPHOCYTES % 11.8 % (18.0-39.1); MEAN CORPUSCULAR HEMOGLOBIN 31.9 pg (28-32); MEAN CORPUSCULAR VOLUME 96.6 fL (81-99); MONOCYTES # (AUTO) 1.1 (0.2-0.8); MONOCYTES % 8.2 % (4.4-11.3); NEUTROPHILS # (AUTO) 9.9 (2.1-6.9); NEUTROPHILS % 73.6 % (38.7-80.0); PLATELET COUNT 201 x10e3/uL (140-360); RED CELL DISTRIBUTION WIDTH 15.2 % (11.7-14.4); WHITE BLOOD COUNT 13.51 x10e3/uL (4.8-10.8)
[2023-05-18 07:18] LABS: ALBUMIN 2.6 g/dL (3.5-5.0); ALBUMIN/GLOBULIN RATIO 0.7 (0.8-2.0); ANION GAP 11.6 mmol/L (8-16); BILIRUBIN,TOTAL 5.8 mg/dL (0.2-1.2); CALCIUM 8.5 mg/dL (8.4-10.2); CREATININE, SERUM 0.88 mg/dL (0.72-1.25); POTASSIUM 3.6 mmol/L (3.5-5.1); TOTAL PROTEIN 6.1 g/dL (6.5-8.1)
[2023-05-18] MEDS: AMLODIPINE BESYLATE 10 MG TAB PO SCH (08:11)
[2023-05-18 23:16] LABS: % IRON SATURATION 29 % (15-50); IRON 73 ug/dL (65-175); TOTAL IRON BINDING CAPACITY 253 ug/dL (261-478); TRANSFERRIN 181 mg/dL (174-364)
[2023-05-19] VITALS (14 sets, daily range): BP systolic 137–163; BP diastolic 55–73; PULSE 58–76; RESP 18–19; TEMP 97–98.5; O2SAT 87–99
[2023-05-19 06:02] LABS: BASOPHILS # (AUTO) 0.1 (0.0-0.1); BASOPHILS % 0.5 % (0.0-1.0); EOSINOPHILS # (AUTO) 0.9 (0.0-0.4); EOSINOPHILS % 7.1 % (0.0-6.0); HEMATOCRIT 30.8 % (38.2-49.6); HEMOGLOBIN 10.4 g/dL (14.0-18.0); LYMPHOCYTES # (AUTO) 1.5 (1.0-3.2); LYMPHOCYTES % 11.3 % (18.0-39.1); MEAN CORPUSCULAR HEMOGLOBIN 32.6 pg (28-32); MEAN CORPUSCULAR HGB CONC 33.8 g/dL (31-35); MEAN CORPUSCULAR VOLUME 96.6 fL (81-99); MONOCYTES # (AUTO) 1.2 (0.2-0.8); MONOCYTES % 9.2 % (4.4-11.3); NEUTROPHILS # (AUTO) 9.2 (2.1-6.9); NEUTROPHILS % 71.5 % (38.7-80.0); PLATELET COUNT 222 x10e3/uL (140-360); RED BLOOD COUNT 3.19 x10e6/uL (4.3-5.7); RED CELL DISTRIBUTION WIDTH 15.1 % (11.7-14.4); WHITE BLOOD COUNT 12.88 x10e3/uL (4.8-10.8)
[2023-05-19 06:36] LABS: ALBUMIN 2.6 g/dL (3.5-5.0); ALBUMIN/GLOBULIN RATIO 0.7 (0.8-2.0); ANION GAP 11.4 mmol/L (8-16); BILIRUBIN,TOTAL 5.5 mg/dL (0.2-1.2); CREATININE, SERUM 0.78 mg/dL (0.72-1.25); TOTAL PROTEIN 6.3 g/dL (6.5-8.1)
[2023-05-19 06:39] LABS: POTASSIUM 3.4 mmol/L (3.5-5.1)
[2023-05-20] VITALS (16 sets, daily range): BP systolic 132–164; BP diastolic 52–65; PULSE 60–76; RESP 16–20; TEMP 97.7–98.5; O2SAT 60–100
[2023-05-20 06:23] LABS: BASOPHILS # (AUTO) 0.1 (0.0-0.1); BASOPHILS % 0.6 % (0.0-1.0); EOSINOPHILS # (AUTO) 0.8 (0.0-0.4); EOSINOPHILS % 6.4 % (0.0-6.0); HEMATOCRIT 29.2 % (38.2-49.6); HEMOGLOBIN 10.2 g/dL (14.0-18.0); LYMPHOCYTES # (AUTO) 1.6 (1.0-3.2); LYMPHOCYTES % 13.1 % (18.0-39.1); MEAN CORPUSCULAR HEMOGLOBIN 32.4 pg (28-32); MEAN CORPUSCULAR HGB CONC 34.9 g/dL (31-35); MEAN CORPUSCULAR VOLUME 92.7 fL (81-99); MONOCYTES # (AUTO) 1.1 (0.2-0.8); NEUTROPHILS # (AUTO) 8.4 (2.1-6.9); PLATELET COUNT 267 x10e3/uL (140-360); RED BLOOD COUNT 3.15 x10e6/uL (4.3-5.7); RED CELL DISTRIBUTION WIDTH 15.1 % (11.7-14.4); WHITE BLOOD COUNT 12.02 x10e3/uL (4.8-10.8)
[2023-05-20 06:54] LABS: ALBUMIN 2.7 g/dL (3.5-5.0); ALBUMIN/GLOBULIN RATIO 0.7 (0.8-2.0); ANION GAP 13.4 mmol/L (8-16); BILIRUBIN,TOTAL 4.8 mg/dL (0.2-1.2); CALCIUM 9.4 mg/dL (8.4-10.2); CREATININE, SERUM 0.82 mg/dL (0.72-1.25); TOTAL PROTEIN 6.4 g/dL (6.5-8.1)
[2023-05-20 06:58] LABS: POTASSIUM 3.4 mmol/L (3.5-5.1)
[2023-05-20 07:32] LABS: HEPATITIS B SURFACE AG (P) Negative; HEPATITIS C ANTIBODY Non Reactive
[2023-05-20] MEDS ORDERED: ONDANSETRON HCL 4 MG ORAL DISINTEGRATING TAB PO PRN (09:00)
[2023-05-20] MEDS ORDERED: GADOBENATE DIMEGLUMINE 1 ML IV ONE (11:29)
[2023-05-21 01:17] VITALS: PULSE 60; RESP 16; O2SAT 90
[2023-05-21 04:00] VITALS: BP 141/52; PULSE 69; RESP 18; TEMP 98.8; O2SAT 97
[2023-05-21 07:00] VITALS: PULSE 63; RESP 16; O2SAT 96
[2023-05-21] MEDS: SODIUM CHLORIDE 0.9% 250ML 250 ML ONE (07:39)
[2023-05-21] MEDS: LORAZEPAM INJ 2 MG/ML VIAL IV ONE (07:40)
[2023-05-21 08:32] VITALS: BP 162/64; PULSE 68; RESP 18; TEMP 97.8; O2SAT 94
[2023-05-21 09:10] VITALS: BP 162/64; PULSE 68; RESP 18; TEMP 97.8; O2SAT 94
[2023-05-21 09:31] VITALS: BP 162/64
== END 2023-05-21 11:24 | disposition home or self-care (01) | DRG 871 ==
LOC: ER 10:52 → ERHOLD 15:20 → ICU 15:55 → MED/SURG2 05-18 15:08
PROVIDERS: ADMIT Internal Medicine; ATTEND Internal Medicine
DX: A41.9 Sepsis, unspecified organism (principal); G92.9 Unspecified toxic encephalopathy; J18.9 Pneumonia, unspecified organism; J96.01 Acute respiratory failure with hypoxia; I13.0 Hypertensive heart and chronic kidney disease with heart failure and stage 1 through stage 4 chronic kidney disease, or unspecified chronic kidney disease; R17 Unspecified jaundice; R65.20 Severe sepsis without septic shock; I50.9 Heart failure, unspecified; I48.91 Unspecified atrial fibrillation; Z79.01 Long term (current) use of anticoagulants; R74.8 Abnormal levels of other serum enzymes; Z99.81 Dependence on supplemental oxygen; J92.0 Pleural plaque with presence of asbestos; E80.6 Other disorders of bilirubin metabolism; I25.10 Atherosclerotic heart disease of native coronary artery without angina pectoris; Z95.5 Presence of coronary angioplasty implant and graft; N18.9 Chronic kidney disease, unspecified; F32.9 Major depressive disorder, single episode, unspecified; F41.9 Anxiety disorder, unspecified; I27.20 Pulmonary hypertension, unspecified; I73.9 Peripheral vascular disease, unspecified; G62.9 Polyneuropathy, unspecified; Z11.52 Encounter for screening for COVID-19; Z86.73 Personal history of transient ischemic attack (TIA), and cerebral infarction without residual deficits; Z85.038 Personal history of other malignant neoplasm of large intestine; Z85.46 Personal history of malignant neoplasm of prostate; Z95.818 Presence of other cardiac implants and grafts; Z90.49 Acquired absence of other specified parts of digestive tract; Z79.899 Other long term (current) drug therapy; Z79.82 Long term (current) use of aspirin; Z92.3 Personal history of irradiation
CPT/HCPCS: 36415; 71045; 71260; 74177; 74183; 76700; 80053; 81001; 82248; 82607; 82746; 83540; 83605; 83690; 83735; 83880; 84100; 84155; 84466; 85025; 85045; 85610; 85730; 87040; 87400; 93005; 93306; 94640; 94760; 94799; 99284; J0692; J1885; J2543; J3370; J7030; J7050; Q9967; U0002